=== PATIENT | female | born 1990 | race Hispanic/Latino ===

== ENCOUNTER 2025-06-02 22:43 | Emergency (ER) | payer BC ==
[~2025-06-02] VITALS: Ht 160 cm; Wt 63.5 kg
[2025-06-02 22:44] VITALS: BP 122/81; PULSE 88; RESP 18; TEMP 98.2
--- NOTE | 2025-06-02 22:51 | NUR ---
REPORT TO BRITTNI MIRANDA
[2025-06-02] MEDS ORDERED: DOXY100T2 PO (23:42)
[2025-06-02] MEDS ORDERED: HYDR453. TP (23:42)
--- NOTE | 2025-06-02 23:47 | ERN ---
General Chief Complaint: Skin Rash/Abscess Stated Complaint: RT BUTTOCK RASH Time Seen by MD: 22:47 Time Seen by Midlevel: 22:47 Source: patient History of Present Illness Initial Comments Patient is a pleasant 34-year-old female presenting to the emergency department for evaluation of a rash to her right buttock that started on May 25, 2025. The rash is itchy with a burning sensation. She was seen at [facility] on June 01, 2025 and given topical hydrocortisone, bacitracin, and permethrin cream for possible scabies. She is here for a 2nd opinion. She applied permethrin cream yesterday which did improve the itching. Allergies: Coded Allergies: No Known Allergies (Unverified Allergy, Unknown, 06/02/25) Past Medical History Past Medical History: No Pertinent History Past Surgical History: None Female( History) LMP: May 12, 2025 ROS Dictation CONSTITUTIONAL: Negative except for HPI HEAD/FACE: Negative except for HPI EENT: Negative except for HPI RESPIRATORY: Negative except for HPI GASTROINTESTINAL/ABDOMINAL: Negative except for HPI GENITOURINARY: Negative except for HPI MUSCULOSKELETAL: Negative except for HPI INTEGUMENTARY: Negative except for HPI NEUROLOGICAL/PSYCH: Negative except for HPI HEMATOLOGIC/LYMPHATIC: Negative except for HPI All Systems Negative, Except as noted above. 13 point review of systems assessed and all negative except for above. Physical Exam Physical Exam Dictation Vital Signs reviewed General Appearance: Alert, oriented x 3, no acute distress, well developed, nourished. Head and Face: non-traumatic. Eyes: PERRL, pink conjunctivas, eyelid no trauma, anterior chamber with arcus senilis. Ears: Pinnas intact and no signs of trauma or erythema ear canals clear and no discharge TM no erythema Nose: No discharge, no bleeding. Oropharynx: Mouth normal, tongue pink, pharynx clear,no erythema, tonsils no exudates, no abscesses noted, mucous membrane moist Neck: Supple, non-tender, no thyromegaly, no masses, no JVD, no bruits Breast:Deferred Chest:No tenderness, no crepitus, no paradoxical movement, no retractions Lungs:Clear, well-ventilated, symmetric, no rales, no wheezing, no rhonchi, no stridor, good breath sounds bilaterally Heart: Regular rate, regular rhythm, no murmur, no gallops Vascular: no peripheral edema, Abdomen: Soft, positive bowel sounds, nondistended, no guarding, nontender, no rebound, no masses no hepatomegaly, no splenomegaly, no Thakkar's sign, no hernias. Rectal: Deferred Genital: Deferred Neurological: Normal speech, motor function intact, sensory function intact Musculoskeletal: Neck nontender, full range of motion, back nontender, full range of motion, Extremities: nontender, full range of motion Skin: Color pink, dry, no turgor, rash to right buttock region no lacerations, no abrasions, no contusions. Lymphatic: Deferred MDM MDM: Differential diagnosis: Scabies, allergic reaction, contact dermatitis There are no social concerns with this patient. Prescription drug management Prescriptions will include: Hydrocortisone, doxycycline Medical management and examination interpretation discussions were had by me with other qualified healthcare professionals as indicated for the patient's care. ED Course Vital Signs Date Time Temp Pulse Resp B/P (MAP) Pulse Ox O2 Delivery O2 Flow Rate FiO2 06/02/25 22:44 98.2 88 18 122/81 100 Room Air DX & DISP Disposition: Discharge Departure Impression: Primary Impression: Rash Condition: Stable Scripts Hydrocortisone (Hydrocortisone) 1 % Cream..g. 1 APPL TP BID for 10 Days, #60 GM 0 Refills apply to affected area(s) Prov: BRITTNI WILKERSON 06/02/25 Doxycycline Hyclate (Doxycycline Hyclate) 100 Mg Tablet 1 TAB PO BID for 7 Days, #14 TAB 0 Refills Prov: BRITTNI WILKERSON 06/02/25 Additional Instructions: Your rash is suspicious for scabies. I have given you a prescription for topical hydrocortisone as well as doxycycline. You need to be seen by a superintendent measurement. Please follow up with Dr. Kamran Willoughby. Address: [address] [place], [place] [id number] Referrals: SELF,REFERRAL (PCP) KAMRAN WILLOUGHBY MD I have reviewed the case, and I agree with, Diagnosis and Plan I performed the substantive portion of the visit. I have reviewed and personally made and approve the management plan that is documented in the note by myself or the DENISE. I acknowledge for responsibility for the patient's management plan. BRITTNI WILKERSON Jun 02, 2025 23:47
== END 2025-06-03 00:07 | disposition home or self-care (01) ==
LOC: EDH 22:43
DX: R21 Rash and other nonspecific skin eruption (principal)
CPT/HCPCS: 99283